=== PATIENT | male | born 1975 | race Caucasian/White ===

== ENCOUNTER 2017-09-21 19:20 | Emergency (ER) | payer OTHER ==
[~2017-09-21] VITALS: Ht 170.2 cm; Wt 80.0 kg
[2017-09-21 19:48] VITALS: BP 159/98; PULSE 111; RESP 16; TEMP 98.2; O2SAT 99
== END 2017-09-22 00:47 | disposition left against medical advice (07) ==
LOC: NED 19:20
DX: R07.9 Chest pain, unspecified (principal); Z53.21 Procedure and treatment not carried out due to patient leaving prior to being seen by health care provider
CPT/HCPCS: 99281